=== PATIENT | male | born 2000 | race Caucasian/White ===

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

== ENCOUNTER 2023-04-03 21:33 | Emergency (ER) | payer BC ==
[2023-04-03 21:39] VITALS: BP 131/82; PULSE 81; RESP 20; TEMP 98.9; BMI 25.0
[2023-04-03] MEDS ORDERED: AZITHROMYCIN 500 MG TABLET PO ONE (23:45)
[2023-04-03] MEDS ORDERED: AZITHROMYCIN 500 MG TABLET ONE (23:51)
== END 2023-04-03 23:58 | disposition home or self-care (01) ==
LOC: JER 21:33
DX: R07.9 Chest pain, unspecified (principal); R06.02 Shortness of breath; F41.9 Anxiety disorder, unspecified; R00.0 Tachycardia, unspecified; J01.90 Acute sinusitis, unspecified; Z20.822 Contact with and (suspected) exposure to COVID-19
CPT/HCPCS: 0241U-QW; 71046-TC-FY; 93005; 93010; 99285-25